=== PATIENT | female | born 1980 | race Caucasian/White ===

== ENCOUNTER 2020-03-23 19:40 | Inpatient (IN) | payer OTHER ==
[2020-03-23] MEDS ORDERED: BUTORPHANOL TARTRATE 1 MG/ML VIAL IVPUSH PRN (20:44)
[2020-03-23] MEDS ORDERED: PROMETHAZINE HCL 25 MG/1 ML VIAL IVPUSH ONE (20:44)
[2020-03-23] MEDS: DEXTROSE 5%-LACTATED RINGERS 1,000 ML IV SCH (20:45)
[2020-03-23 21:04] LABS: BASO % 0.3 % (0-2.0); EOS % 0.8 % (0-4.5); HEMATOCRIT 41.2 % (32.4-45.2); HEMOGLOBIN 13.8 GM/dL (10.7-15.3); LYMPH % 11.4 % (8-40); MCH 30.9 pg (25.7-33.7); MCHC 33.5 g/dl (32.0-36.0); MEAN CELL VOLUME 92.2 fl (80-96); MEAN PLT VOLUME 7.6 fl (7.5-11.1); MONO % 6.1 % (3.8-10.2); NEUT % 81.4 % (42.8-82.8); PLATELET COUNT 319 K/MM3 (134-434); RBC 4.47 M/mm3 (3.60-5.2); RDW 15.4 % (11.6-15.6); WHITE BLOOD COUNT 15.5 K/mm3 (4.0-10.0)
[2020-03-23 21:11] LABS: INR 0.87 (0.83-1.09); PROTHROMBIN TIME (PATIENT) 10.7 SEC (9.7-13.0)
[2020-03-23 21:14] LABS: ACTIVATED PTT 27.2 SECONDS (25.2-36.5)
[2020-03-23 21:22] VITALS: BMI 28.1
[2020-03-23 21:22] LABS: POTASSIUM 5.1 mmol/L (3.5-5.1)
[2020-03-23 21:23] LABS: CALCIUM 9.3 mg/dL (8.5-10.1)
[2020-03-23 21:24] LABS: BLOOD UREA NITROGEN 7.6 mg/dL (7-18)
[2020-03-23 21:27] LABS: CREATININE 0.5 mg/dL (0.55-1.3)
[2020-03-23] MEDS ORDERED: BUTORPHANOL TARTRATE 2 MG/ML VIAL ONE (22:21)
[2020-03-23] MEDS ORDERED: PROMETHAZINE HCL 25 MG/1 ML VIAL ONE (22:21)
[2020-03-24] MEDS ORDERED: FENTANYL/BUPIVACAINE/NS/PF - PCEA - 50 ML DISP.SYRIN EP ONE (00:35)
[2020-03-24] MEDS ORDERED: PCA PUMP NR ONE ×2 (00:36→07:59)
[2020-03-24] MEDS ORDERED: BUPIVACAINE HCL/PF 0.25% (2.5MG/ML) 10 ML VIAL ONE (00:43)
[2020-03-24] MEDS: ELECTROLYTE-148 SOLN 1,000 ML IV SCH (00:45)
[2020-03-24] MEDS: FENTANYL/BUPIVACAINE/NS/PF - PCEA - 50 ML DISP.SYRIN EP SCH (01:00)
[2020-03-24] MEDS ORDERED: NALOXONE HCL 0.4 MG/ML VIAL IVPUSH PRN (01:03)
[2020-03-24] MEDS: OXYTOCIN 30 UNITS in 0.9% NS 30 UNIT/500 ML INFUS.BAG IVPB SCH (06:30)
[2020-03-24] MEDS ORDERED: OXYTOCIN 30 UNITS in 0.9% NS 30 UNIT/500 ML INFUS.BAG IVPB ONE (06:34)
[2020-03-24] MEDS: OXYTOCIN 20 UNITS in 0.9% NS 20 UNIT/1,000 ML INFUS.BAG IV SCH (09:20)
[2020-03-24] MEDS ORDERED: IBUPROFEN 600 MG TABLET (FP) PO ONE (09:46)
[2020-03-24] MEDS ORDERED: ACETAMINOPHEN 325 MG TABLET (FP) ONE (09:47)
[2020-03-24] MEDS: IBUPROFEN 600 MG TABLET (FP) PO PRN ×3 (09:50→21:04)
[2020-03-24] MEDS: ACETAMINOPHEN 325 MG TABLET (FP) PO PRN ×3 (09:50→21:05)
[2020-03-24] MEDS ORDERED: WITCH HAZEL 50% (TUCKS) 40 PAD/JAR PAD TP PRN (10:09)
[2020-03-24] MEDS ORDERED: BISACODYL 10 MG SUPP.RECT RC PRN (10:09)
[2020-03-24] MEDS ORDERED: BENZOCAINE 28 GM HEMORRHOIDAL OINTMENT TP PRN (10:09)
[2020-03-24] MEDS ORDERED: METHYLERGONOVINE MALEATE 0.2 MG/1 ML AMP IM PRN (10:09)
[2020-03-24 10:24] LABS: CORD BASE EXCESS -4.6 mmol/L (0-2); CORD HCO3 24.5 mmHg (20-29); CORD PCO2 60.9 mmHg (30-78); CORD pH 7.223 (7.14-7.44)
[2020-03-24 10:25] LABS: CORD BASE EXCESS -3.9 mmol/L (0-2); CORD HCO3 22.2 mmHg (20-29); CORD PCO2 43.6 mmHg (30-78); CORD pH 7.324 (7.14-7.44)
[2020-03-24] MEDS: oxyCODONE HCL 5 MG TABLET PO PRN (12:00)
[2020-03-24] MEDS: BENZOCAINE 20% 57 GM BOTTLE TP PRN (12:02)
[2020-03-24] MEDS: FERROUS SO4 325 MG TABLET (FP) PO SCH (21:04)
[2020-03-25] MEDS: IBUPROFEN 600 MG TABLET (FP) PO PRN ×4 (04:53→20:54)
[2020-03-25] MEDS: ACETAMINOPHEN 325 MG TABLET (FP) PO PRN ×4 (04:54→20:53)
[2020-03-25 08:17] LABS: BASO % 0.2 % (0-2.0); EOS % 0.8 % (0-4.5); HEMATOCRIT 28.4 % (32.4-45.2); HEMOGLOBIN 9.3 GM/dL (10.7-15.3); LYMPH % 9.9 % (8-40); MCH 30.2 pg (25.7-33.7); MCHC 32.7 g/dl (32.0-36.0); MEAN CELL VOLUME 92.3 fl (80-96); MONO % 6.1 % (3.8-10.2); PLATELET COUNT 242 K/MM3 (134-434); RBC 3.07 M/mm3 (3.60-5.2); RDW 15.1 % (11.6-15.6); WHITE BLOOD COUNT 21.5 K/mm3 (4.0-10.0)
[2020-03-25] MEDS: FERROUS SO4 325 MG TABLET (FP) PO SCH ×2 (09:36→21:02)
[2020-03-25] MEDS: PRENATAL VITAMINS W/ FOLIC ACID TABLET (FP) PO SCH (09:36)
[2020-03-25 09:48] LABS: ANISOCYTOSIS 1+; MACROCYTOSIS 0; PLATELET ESTIMATE NORMAL; TOXIC GRANULATION 1+
[2020-03-25] MEDS: FENTANYL/BUPIVACAINE/NS/PF - PCEA - 50 ML DISP.SYRIN EP SCH (12:26)
[2020-03-25] MEDS: DEXTROSE 5%-LACTATED RINGERS 1,000 ML IV SCH (19:44)
[2020-03-25] MEDS: OXYTOCIN 20 UNITS in 0.9% NS 20 UNIT/1,000 ML INFUS.BAG IV SCH (19:46)
[2020-03-25] MEDS: OXYTOCIN 30 UNITS in 0.9% NS 30 UNIT/500 ML INFUS.BAG IVPB SCH (19:46)
[2020-03-25] MEDS: ELECTROLYTE-148 SOLN 1,000 ML IV SCH (19:46)
[2020-03-25] MEDS: oxyCODONE HCL 5 MG TABLET PO PRN (21:01)
[2020-03-25] MEDS ORDERED: SENNOSIDES/DOCUSATE COMBO (SENNA PLUS) TABLET (UD) PO PRN (22:00)
[2020-03-26] MEDS: oxyCODONE HCL 5 MG TABLET PO PRN (01:22)
[2020-03-26] MEDS: IBUPROFEN 600 MG TABLET (FP) PO PRN ×2 (01:23→07:53)
[2020-03-26] MEDS: ACETAMINOPHEN 325 MG TABLET (FP) PO PRN ×2 (01:24→07:53)
[2020-03-26] MEDS: BENZOCAINE 20% 57 GM BOTTLE TP PRN (01:31)
[2020-03-26 08:10] LABS: HEMATOCRIT 28.9 % (32.4-45.2); HEMOGLOBIN 9.5 GM/dL (10.7-15.3); MCH 30.6 pg (25.7-33.7); MCHC 32.8 g/dl (32.0-36.0); MEAN CELL VOLUME 93.1 fl (80-96); MEAN PLT VOLUME 7.2 fl (7.5-11.1); PLATELET COUNT 286 K/MM3 (134-434); RBC 3.11 M/mm3 (3.60-5.2); RDW 15.6 % (11.6-15.6); WHITE BLOOD COUNT 15.9 K/mm3 (4.0-10.0)
[2020-03-26 09:25] VITALS: BP 109/61; TEMP 97.4
[2020-03-26 10:11] VITALS: PULSE 84
[2020-03-26] MEDS: PRENATAL VITAMINS W/ FOLIC ACID TABLET (FP) PO SCH (10:35)
[2020-03-26] MEDS: FERROUS SO4 325 MG TABLET (FP) PO SCH (10:35)
[2020-03-27 16:13] LABS: POC NITRAZINE POS
== END 2020-03-26 13:35 | disposition home or self-care (01) | DRG 560 ==
LOC: JDEL 19:40 → JLDR 20:25 → J3W 03-24 11:36
PROVIDERS: ADMIT Obstetrics & Gynecology; ATTEND Obstetrics & Gynecology
PROC: 10E0XZZ Delivery of Products of Conception, External Approach (ICD-10-PCS; principal; 2020-03-24)
PROC: 0W8NXZZ Division of Female Perineum, External Approach (ICD-10-PCS; 2020-03-24)
DX: O48.0 Post-term pregnancy (principal); O36.63X0 Maternal care for excessive fetal growth, third trimester, not applicable or unspecified; O99.02 Anemia complicating childbirth; D64.9 Anemia, unspecified; O75.89 Other specified complications of labor and delivery; K59.00 Constipation, unspecified; K64.9 Unspecified hemorrhoids; Z3A.40 40 weeks gestation of pregnancy; Z37.0 Single live birth
CPT/HCPCS: 36415; 36600; 59025; 59409; 80048; 82803; 83986-QW; 85025; 85027; 85610; 85730; 86780; 86850; 86900; 86901; C9803; U0003